=== PATIENT | female | born 1965 | race Caucasian/White ===

== ENCOUNTER → 2024-07-18 | Outpatient (REF) | payer BC | LOC: M SFHCDERM 12:28 | PROVIDERS: ATTEND Physician Assistant | DX: L72.3 Sebaceous cyst (principal) ==

== ENCOUNTER 2024-09-05 10:12 | Day surgery (SDC) | payer BC ==
[~2024-09-05] VITALS: Ht 170.2 cm; Wt 84.4 kg
[~2024-09-05 10:12] MED LIST: ALPR1TAB3 PO; ARIP1TAB6 PO; BRIN1TAB3 PO; CAMBIA PO; HYDR50TA70 PO; LAMO150T3 PO; NS 250 ML IV ONE; PRAZ2CAP PO
[2024-09-05] MEDS ORDERED: LIDOCAINE 2% 100MG/5ML SDV (FOR ANES.) As Ordered ONE (12:13)
[2024-09-05] MEDS ORDERED: propofoL 200 MG/20 ML VIAL As Ordered ONE (12:13)
[2024-09-05 13:12] VITALS: TEMP 98.8
[2024-09-05 13:28] VITALS: BP 127/58; O2SAT 100
== END 2024-09-05 13:33 | disposition home or self-care (01) ==
LOC: M OPP 10:12 → EDUNIT# 14:15
PROVIDERS: ATTEND Internal Medicine Gastroenterology
DX: R19.5 Other fecal abnormalities (principal); K64.0 First degree hemorrhoids; G43.909 Migraine, unspecified, not intractable, without status migrainosus; Z79.899 Other long term (current) drug therapy; Z90.710 Acquired absence of both cervix and uterus; Z98.84 Bariatric surgery status; Z90.89 Acquired absence of other organs